=== PATIENT | female | born 1965 | race African-American/Black ===

== ENCOUNTER 2023-02-14 07:05 | Day surgery (SDC) | payer SELFPAY ==
[~2023-02-14 07:05] MED LIST: Lactated Ringers 1,000 ML IV SCH
[2023-02-14] MEDS ORDERED: Dexmedetomidine 200 MCG/2 ML SDV IV ONE (07:06)
[2023-02-14] MEDS ORDERED: Propofol 200 MG/20 ML SDV ONE (07:30)
== END 2023-02-14 09:40 | disposition home or self-care (01) ==
LOC: MW.SDS 07:05
PROVIDERS: ATTEND Surgery
DX: K29.50 Unspecified chronic gastritis without bleeding (principal); K31.89 Other diseases of stomach and duodenum; K21.9 Gastro-esophageal reflux disease without esophagitis; M19.90 Unspecified osteoarthritis, unspecified site; E11.9 Type 2 diabetes mellitus without complications; E66.9 Obesity, unspecified; Z88.8 Allergy status to other drugs, medicaments and biological substances; Z91.09 Other allergy status, other than to drugs and biological substances; Z79.899 Other long term (current) drug therapy; Z91.048 Other nonmedicinal substance allergy status; Z91.011 Allergy to milk products; Z88.5 Allergy status to narcotic agent; Z79.84 Long term (current) use of oral hypoglycemic drugs; Z98.51 Tubal ligation status; Z68.35 Body mass index [BMI] 35.0-35.9, adult
CPT/HCPCS: 43239; 82947; J2704; J7120; 00731; J3490